=== PATIENT | male | born 1980 | race African-American/Black ===

== ENCOUNTER 2023-05-28 10:00 | Inpatient (IN) | payer OTHER ==
[2023-05-28 10:58] VITALS: BMI 21.3
[2023-05-28] MEDS ORDERED: BISMUTH SUBSALICYLATE 524 MG/30 ML PO PRN (14:41)
[2023-05-28] MEDS ORDERED: guaiFENesin 600 MG TABLET.ER (FP) PO PRN (14:41)
[2023-05-28] MEDS ORDERED: MAG HYDROX/AL HYDROX/SIMETH 30 ML UNIT-DOSE CUP PO PRN (14:41)
[2023-05-28] MEDS ORDERED: POLYETHYLENE GLYCOL (HEALTHYLAX) 3350 17 GM PACKET PO PRN (14:41)
[2023-05-28] MEDS ORDERED: METHOCARBAMOL 500 MG TABLET PO PRN (14:41)
[2023-05-28] MEDS ORDERED: MAGNESIUM HYDROX 2400MG/30ML ORAL SUSPENSION 30 ML CUP PO PRN (14:41)
[2023-05-28] MEDS ORDERED: IBUPROFEN 600 MG TABLET (FP) PO PRN (14:41)
[2023-05-28] MEDS ORDERED: chlordiazePOXIDE HCL 25 MG CAPSULE PO PRN (14:41)
[2023-05-28] MEDS ORDERED: DICYCLOMINE HCL 10 MG CAPSULE PO PRN (14:41)
[2023-05-28] MEDS ORDERED: NALOXONE HCL 0.4 MG/ML VIAL IM PRN (14:41)
[2023-05-28] MEDS ORDERED: BENZOCAINE/MENTHOL (CHLORASEPTIC ) LOZENGE MM PRN (14:41)
[2023-05-28] MEDS ORDERED: NALOXONE HCL (KLOXXADO) 8 MG SPRAY NS PRN (14:41)
[2023-05-28] MEDS ORDERED: hydrOXYzine PAMOATE 25 MG CAPSULE (FP) PO PRN (14:41)
[2023-05-28] MEDS ORDERED: IBUPROFEN 400 MG TABLET (FP) PO PRN (14:41)
[2023-05-28] MEDS ORDERED: LOPERAMIDE HCL 2 MG CAPSULE PO PRN (14:41)
[2023-05-28] MEDS ORDERED: ACETAMINOPHEN 325 MG TABLET (FP) PO PRN (14:41)
[2023-05-28] MEDS ORDERED: ONDANSETRON *ODT* 4 MG TABLET SL PRN (14:41)
[2023-05-28] MEDS ORDERED: BENZONATATE 200 MG CAPSULE PO PRN (14:41)
[2023-05-28] MEDS ORDERED: chlordiazePOXIDE HCL 25 MG CAPSULE ONE (16:50)
[2023-05-28] MEDS: chlordiazePOXIDE HCL 25 MG CAPSULE PO SCH ×2 (16:58→22:45)
[2023-05-28] MEDS: MELATONIN 5 MG TABLETS PO SCH (22:46)
[2023-05-28] MEDS: THIAMINE HCL 100 MG TABLET (FP) PO SCH (22:46)
[2023-05-29] MEDS: chlordiazePOXIDE HCL 25 MG CAPSULE PO SCH ×4 (06:02→22:10)
[2023-05-29] MEDS ORDERED: ALBUTEROL SO4 HFA INHALER IH PRN (08:59)
[2023-05-29] MEDS: NICOTINE POLACRILEX 2 MG GUM BUC PRN (10:33)
[2023-05-29] MEDS: PRENATAL VITAMINS W/ FOLIC ACID TABLET (FP) PO SCH (10:34)
[2023-05-29 12:10] LABS: HEMATOCRIT 36.8 % (35.4-49); HEMOGLOBIN 12.5 GM/dL (11.7-16.9); MCH 32.8 pg (25.7-33.7); MCHC 33.9 g/dl (32.0-35.9); MEAN CELL VOLUME 96.5 fl (80-96); MEAN PLT VOLUME 10.4 fl (7.5-11.1); PLATELET COUNT 192 10^3/uL (134-434); RBC 3.81 M/mm3 (4.00-5.60); RDW 12.9 % (11.9-15.9); WHITE BLOOD COUNT 5.5 K/mm3 (4.0-10.0)
[2023-05-29 12:15] LABS: POTASSIUM 4.1 mmol/L (3.5-5.1)
[2023-05-29 12:25] LABS: BLOOD UREA NITROGEN 15.1 mg/dL (7-18); CALCIUM 8.6 mg/dL (8.5-10.1)
[2023-05-29 12:26] LABS: ALBUMIN 3.6 g/dl (3.4-5.0)
[2023-05-29 12:30] LABS: BILIRUBIN,TOTAL 0.7 mg/dL (0.2-1); TOT PROT 6.9 g/dl (6.4-8.2)
[2023-05-29] MEDS: THIAMINE HCL 100 MG TABLET (FP) PO SCH (22:10)
[2023-05-29] MEDS: MELATONIN 5 MG TABLETS PO SCH (22:11)
[2023-05-30] MEDS: chlordiazePOXIDE HCL 25 MG CAPSULE PO SCH ×5 (05:32→22:07)
[2023-05-30] MEDS: PRENATAL VITAMINS W/ FOLIC ACID TABLET (FP) PO SCH ×2 (10:29→10:30)
[2023-05-30] MEDS: THIAMINE HCL 100 MG TABLET (FP) PO SCH (22:07)
[2023-05-30] MEDS: MELATONIN 5 MG TABLETS PO SCH (22:08)
[2023-05-31] MEDS ORDERED: chlordiazePOXIDE HCL 10 MG CAPSULE PO PRN
[2023-05-31] MEDS: chlordiazePOXIDE HCL 10 MG CAPSULE PO SCH ×4 (05:40→22:09)
[2023-05-31] MEDS: PRENATAL VITAMINS W/ FOLIC ACID TABLET (FP) PO SCH (10:35)
[2023-05-31] MEDS: NICOTINE POLACRILEX 2 MG GUM BUC PRN (10:38)
[2023-05-31] MEDS: THIAMINE HCL 100 MG TABLET (FP) PO SCH (22:09)
[2023-05-31] MEDS: MELATONIN 5 MG TABLETS PO SCH (22:10)
[2023-06-01] MEDS: chlordiazePOXIDE HCL 10 MG CAPSULE PO SCH ×2 (05:43→17:45)
[2023-06-01] MEDS: PRENATAL VITAMINS W/ FOLIC ACID TABLET (FP) PO SCH (11:15)
[2023-06-01] MEDS: MELATONIN 5 MG TABLETS PO SCH (22:24)
[2023-06-01] MEDS: THIAMINE HCL 100 MG TABLET (FP) PO SCH (22:24)
[2023-06-02] MEDS ORDERED: chlordiazePOXIDE HCL 10 MG CAPSULE PO ONE (05:00)
[2023-06-02 06:42] VITALS: RESP 17
[2023-06-02 09:49] VITALS: BP 101/65; PULSE 82; TEMP 96.9
[2023-06-02] MEDS: PRENATAL VITAMINS W/ FOLIC ACID TABLET (FP) PO SCH (10:19)
== END 2023-06-02 10:47 | disposition home or self-care (01) | DRG 775 ==
LOC: YASAS 10:00 → Y6N 16:19
PROVIDERS: ADMIT Allergy & Immunology; ATTEND Allergy & Immunology
PROC: HZ2ZZZZ Detoxification Services for Substance Abuse Treatment (ICD-10-PCS; principal; 2023-05-28)
DX: F10.230 Alcohol dependence with withdrawal, uncomplicated (principal); F17.210 Nicotine dependence, cigarettes, uncomplicated; J45.30 Mild persistent asthma, uncomplicated
CPT/HCPCS: 36415; 80053; 85027; 86780; 87635; 87811

== ENCOUNTER 2023-08-15 14:23 | Inpatient (IN) | payer OTHER ==
[2023-08-15 16:01] VITALS: BMI 23.3
[2023-08-15] MEDS ORDERED: BENZONATATE 200 MG CAPSULE PO PRN (16:29)
[2023-08-15] MEDS ORDERED: NALOXONE HCL 0.4 MG/ML VIAL IM PRN (16:29)
[2023-08-15] MEDS ORDERED: MAGNESIUM HYDROX 2400MG/30ML ORAL SUSPENSION 30 ML CUP PO PRN (16:29)
[2023-08-15] MEDS ORDERED: ACETAMINOPHEN 325 MG TABLET (FP) PO PRN (16:29)
[2023-08-15] MEDS ORDERED: hydrOXYzine PAMOATE 25 MG CAPSULE (FP) PO PRN (16:29)
[2023-08-15] MEDS ORDERED: ONDANSETRON *ODT* 4 MG TABLET SL PRN (16:29)
[2023-08-15] MEDS ORDERED: BENZOCAINE/MENTHOL (CHLORASEPTIC ) LOZENGE MM PRN (16:29)
[2023-08-15] MEDS ORDERED: IBUPROFEN 400 MG TABLET (FP) PO PRN (16:29)
[2023-08-15] MEDS ORDERED: guaiFENesin 600 MG TABLET.ER (FP) PO PRN (16:29)
[2023-08-15] MEDS ORDERED: chlordiazePOXIDE HCL 25 MG CAPSULE PO PRN (16:29)
[2023-08-15] MEDS ORDERED: LOPERAMIDE HCL 2 MG CAPSULE PO PRN (16:29)
[2023-08-15] MEDS ORDERED: BISMUTH SUBSALICYLATE 524 MG/30 ML PO PRN (16:29)
[2023-08-15] MEDS ORDERED: DICYCLOMINE HCL 10 MG CAPSULE PO PRN (16:29)
[2023-08-15] MEDS ORDERED: NALOXONE HCL (KLOXXADO) 8 MG SPRAY NS PRN (16:29)
[2023-08-15] MEDS ORDERED: POLYETHYLENE GLYCOL (HEALTHYLAX) 3350 17 GM PACKET PO PRN (16:29)
[2023-08-15] MEDS ORDERED: IBUPROFEN 600 MG TABLET (FP) PO PRN (16:29)
[2023-08-15] MEDS ORDERED: MAG HYDROX/AL HYDROX/SIMETH 30 ML UNIT-DOSE CUP PO PRN (16:29)
[2023-08-15] MEDS ORDERED: NICOTINE POLACRILEX 2 MG GUM BUC PRN (16:29)
[2023-08-15] MEDS ORDERED: METHOCARBAMOL 500 MG TABLET PO PRN (16:29)
[2023-08-15] MEDS ORDERED: ALBUTEROL SO4 HFA INHALER IH PRN (16:31)
[2023-08-15] MEDS: PRENATAL VITAMINS W/ FOLIC ACID TABLET (FP) PO SCH (17:33)
[2023-08-15] MEDS: chlordiazePOXIDE HCL 25 MG CAPSULE PO SCH ×2 (17:34→22:43)
[2023-08-15] MEDS: THIAMINE HCL 100 MG TABLET (FP) PO SCH (22:42)
[2023-08-15] MEDS: MELATONIN 5 MG TABLETS PO SCH (22:42)
[2023-08-16] MEDS: chlordiazePOXIDE HCL 25 MG CAPSULE PO SCH ×4 (05:36→22:15)
[2023-08-16] MEDS: PRENATAL VITAMINS W/ FOLIC ACID TABLET (FP) PO SCH (10:11)
[2023-08-16] MEDS: NICOTINE 21 MG/24 HOURS TOPICAL PATCH TD SCH (10:11)
[2023-08-16 11:32] LABS: HEMATOCRIT 38.2 % (35.4-49); MCH 31.5 pg (25.7-33.7); MEAN CELL VOLUME 92.7 fl (80-96); MEAN PLT VOLUME 9.4 fl (7.5-11.1); PLATELET COUNT 239 10^3/uL (134-434); RBC 4.12 M/mm3 (4.00-5.60); RDW 13.1 % (11.9-15.9); WHITE BLOOD COUNT 4.3 K/mm3 (4.0-10.0)
[2023-08-16 12:46] LABS: CHLORIDE 106 mmol/L (98-107); POTASSIUM 4.2 mmol/L (3.5-5.1); SODIUM 141 mmol/L (136-145)
[2023-08-16 12:55] LABS: ANION GAP 6 mmol/L (4-13); BLOOD UREA NITROGEN 7.7 mg/dL (7-18); CALCIUM 8.7 mg/dL (8.5-10.1); CO2 29 mmol/L (21-32); GLUCOSE,RANDOM 96 mg/dL (74-106)
[2023-08-16 12:56] LABS: ALBUMIN 3.6 g/dl (3.4-5.0)
[2023-08-16 12:59] LABS: CREATININE 1.1 mg/dL (0.55-1.3); SGOT/AST 91 U/L (15-37); SGPT/ALT 69 U/L (13-61)
[2023-08-16 13:00] LABS: TOT PROT 6.8 g/dl (6.4-8.2)
[2023-08-16 13:01] LABS: ALK PHOS 68 U/L (45-117)
[2023-08-16] MEDS: MELATONIN 5 MG TABLETS PO SCH (22:15)
[2023-08-16] MEDS: THIAMINE HCL 100 MG TABLET (FP) PO SCH (22:15)
[2023-08-17] MEDS: chlordiazePOXIDE HCL 25 MG CAPSULE PO SCH ×4 (05:45→22:14)
[2023-08-17] MEDS: PRENATAL VITAMINS W/ FOLIC ACID TABLET (FP) PO SCH (10:18)
[2023-08-17] MEDS: NICOTINE 21 MG/24 HOURS TOPICAL PATCH TD SCH (10:20)
[2023-08-17] MEDS: MELATONIN 5 MG TABLETS PO SCH (22:13)
[2023-08-17] MEDS: THIAMINE HCL 100 MG TABLET (FP) PO SCH (22:14)
[2023-08-18] MEDS ORDERED: chlordiazePOXIDE HCL 10 MG CAPSULE PO PRN
[2023-08-18] MEDS: chlordiazePOXIDE HCL 10 MG CAPSULE PO SCH ×2 (05:32→10:03)
[2023-08-18] MEDS: PRENATAL VITAMINS W/ FOLIC ACID TABLET (FP) PO SCH (10:03)
[2023-08-18] MEDS: NICOTINE 21 MG/24 HOURS TOPICAL PATCH TD SCH (10:04)
[2023-08-18 12:59] VITALS: BP 106/66; PULSE 80; RESP 18; TEMP 97.9
[2023-08-19] MEDS ORDERED: chlordiazePOXIDE HCL 10 MG CAPSULE PO SCH (05:00)
[2023-08-20] MEDS ORDERED: chlordiazePOXIDE HCL 10 MG CAPSULE PO ONE (05:00)
== END 2023-08-18 14:50 | disposition home or self-care (01) | DRG 775 ==
LOC: YASAS 14:23 → Y3N 16:44
PROVIDERS: ADMIT Allergy & Immunology; ATTEND Surgery
PROC: HZ2ZZZZ Detoxification Services for Substance Abuse Treatment (ICD-10-PCS; principal; 2023-08-15)
DX: F10.230 Alcohol dependence with withdrawal, uncomplicated (principal); F17.210 Nicotine dependence, cigarettes, uncomplicated; J45.30 Mild persistent asthma, uncomplicated; Z86.19 Personal history of other infectious and parasitic diseases; Z59.01 Sheltered homelessness
CPT/HCPCS: 36415; 80053; 80307; 85027; 86780; 87635

== ENCOUNTER 2024-03-16 08:52 | Inpatient (IN) | payer OTHER ==
[2024-03-16 09:24] VITALS: BMI 20.5
[2024-03-16] MEDS ORDERED: DICYCLOMINE HCL 10 MG CAPSULE PO PRN (11:05)
[2024-03-16] MEDS ORDERED: NICOTINE POLACRILEX 4 MG GUM BUC PRN (11:05)
[2024-03-16] MEDS ORDERED: guaiFENesin 600 MG TABLET.ER (FP) PO PRN (11:05)
[2024-03-16] MEDS ORDERED: POLYETHYLENE GLYCOL (HEALTHYLAX) 3350 17 GM PACKET PO PRN (11:05)
[2024-03-16] MEDS ORDERED: ONDANSETRON *ODT* 4 MG TABLET SL PRN (11:05)
[2024-03-16] MEDS ORDERED: MAGNESIUM HYDROX 2400MG/30ML ORAL SUSPENSION 30 ML CUP PO PRN (11:05)
[2024-03-16] MEDS ORDERED: NALOXONE HCL 0.4 MG/ML VIAL IM PRN (11:05)
[2024-03-16] MEDS ORDERED: NALOXONE (NARCAN) HCL 4 MG/0.1 ML SPRAY NS PRN (11:05)
[2024-03-16] MEDS ORDERED: LOPERAMIDE HCL 2 MG CAPSULE PO PRN (11:05)
[2024-03-16] MEDS ORDERED: IBUPROFEN 400 MG TABLET (FP) PO PRN (11:05)
[2024-03-16] MEDS ORDERED: BENZOCAINE/MENTHOL (CHLORASEPTIC ) LOZENGE MM PRN (11:05)
[2024-03-16] MEDS ORDERED: BENZONATATE 200 MG CAPSULE PO PRN (11:05)
[2024-03-16] MEDS ORDERED: BISMUTH SUBSALICYLATE 524 MG/30 ML PO PRN (11:05)
[2024-03-16] MEDS ORDERED: AMMONIUM LACTATE 12% LOTION 225 GM BOTTLE TP PRN (11:05)
[2024-03-16] MEDS ORDERED: IBUPROFEN 600 MG TABLET (FP) PO PRN (11:05)
[2024-03-16] MEDS ORDERED: chlordiazePOXIDE HCL 25 MG CAPSULE PO PRN (11:05)
[2024-03-16] MEDS ORDERED: ACETAMINOPHEN 325 MG TABLET (FP) PO PRN (11:05)
[2024-03-16] MEDS ORDERED: ALBUTEROL SO4 HFA INHALER IH PRN (11:08)
[2024-03-16] MEDS: chlordiazePOXIDE HCL 25 MG CAPSULE PO SCH (17:13)
[2024-03-16] MEDS: THIAMINE 100 MG TABLET PO SCH (22:09)
[2024-03-16] MEDS: MELATONIN 5 MG TABLETS PO SCH (22:09)
[2024-03-17 11:57] LABS: CHLORIDE 103 mmol/L (98-107); POTASSIUM 3.2 mmol/L (3.5-5.1); SODIUM 139 mmol/L (136-145)
[2024-03-17 11:58] LABS: CALCIUM 8.6 mg/dL (8.5-10.1)
[2024-03-17 11:59] LABS: ALBUMIN 3.5 g/dl (3.4-5.0); ANION GAP 6 mmol/L (4-13); BLOOD UREA NITROGEN 7.8 mg/dL (7-18); CO2 30 mmol/L (21-32); GLUCOSE,RANDOM 88 mg/dL (74-106)
[2024-03-17] MEDS: PRENATAL VITAMINS W/ FOLIC ACID TABLET (FP) PO SCH (12:01)
[2024-03-17 12:02] LABS: CREATININE 0.7 mg/dL (0.55-1.3); SGOT/AST 77 U/L (15-37); SGPT/ALT 41 U/L (13-61)
[2024-03-17 12:04] LABS: BILIRUBIN,TOTAL 0.7 mg/dL (0.2-1); TOT PROT 6.5 g/dl (6.4-8.2)
[2024-03-17 12:05] LABS: ALK PHOS 81 U/L (45-117)
[2024-03-17 12:11] LABS: HEMATOCRIT 32.9 % (35.4-49); HEMOGLOBIN 11.1 GM/dL (11.7-16.9); MCH 34.3 pg (25.7-33.7); MCHC 33.8 g/dl (32.0-35.9); MEAN CELL VOLUME 101.4 fl (80-96); PLATELET COUNT 128 10^3/uL (134-434); RBC 3.24 M/mm3 (4.00-5.60); RDW 13.6 % (11.9-15.9); WHITE BLOOD COUNT 3.4 K/mm3 (4.0-10.0)
[2024-03-17] MEDS: MAG HYDROX/AL HYDROX/SIMETH 30 ML UNIT-DOSE CUP PO PRN (22:10)
[2024-03-18] MEDS: chlordiazePOXIDE HCL 25 MG CAPSULE PO SCH (05:39)
[2024-03-18] MEDS: POTASSIUM CHLORIDE ORAL LIQUID 20 MEQ/15 ML PO ONE (15:30)
[2024-03-18] MEDS: LACTULOSE 20 GM/30 ML UDC (FOR ORAL USE ONLY) PO SCH (17:13)
[2024-03-18] MEDS: POTASSIUM CHLORIDE ORAL LIQUID 20 MEQ/15 ML PO SCH (22:18)
[2024-03-19] MEDS ORDERED: chlordiazePOXIDE HCL 10 MG CAPSULE PO PRN
[2024-03-19] MEDS: chlordiazePOXIDE HCL 10 MG CAPSULE PO SCH (06:09)
[2024-03-19] MEDS: METHOCARBAMOL 500 MG TABLET PO PRN (10:25)
[2024-03-20] MEDS: chlordiazePOXIDE HCL 10 MG CAPSULE PO SCH (05:45)
[2024-03-21] MEDS: chlordiazePOXIDE HCL 10 MG CAPSULE PO ONE (05:51)
[2024-03-21 08:45] VITALS: BP 126/84; PULSE 79; RESP 18; TEMP 96.9
== END 2024-03-21 09:50 | disposition other institution (70) | DRG 775 ==
LOC: YASAS 08:52 → Y6N 13:16
PROVIDERS: ADMIT Allergy & Immunology; ATTEND Surgery
PROC: HZ2ZZZZ Detoxification Services for Substance Abuse Treatment (ICD-10-PCS; principal; 2024-03-16)
DX: F10.230 Alcohol dependence with withdrawal, uncomplicated (principal); F17.210 Nicotine dependence, cigarettes, uncomplicated; E87.6 Hypokalemia; J45.30 Mild persistent asthma, uncomplicated; K21.9 Gastro-esophageal reflux disease without esophagitis; M54.9 Dorsalgia, unspecified; R79.89 Other specified abnormal findings of blood chemistry
CPT/HCPCS: 36415; 80053; 80305; 80307; 82140; 84132; 85027; 86780; 93005; 93010

== ENCOUNTER 2024-05-13 10:06 | Inpatient (IN) | payer OTHER ==
[2024-05-13 10:38] VITALS: BMI 19.8
[2024-05-13] MEDS ORDERED: ALBUTEROL SO4 HFA INHALER IH PRN (11:32)
[2024-05-13] MEDS ORDERED: IBUPROFEN 600 MG TABLET (FP) PO PRN (11:39)
[2024-05-13] MEDS ORDERED: ACETAMINOPHEN 325 MG TABLET (FP) PO PRN (11:39)
[2024-05-13] MEDS ORDERED: POLYETHYLENE GLYCOL (HEALTHYLAX) 3350 17 GM PACKET PO PRN (11:39)
[2024-05-13] MEDS ORDERED: ONDANSETRON *ODT* 4 MG TABLET SL PRN (11:39)
[2024-05-13] MEDS ORDERED: LOPERAMIDE HCL 2 MG CAPSULE PO PRN (11:39)
[2024-05-13] MEDS ORDERED: guaiFENesin 600 MG TABLET.ER (FP) PO PRN (11:39)
[2024-05-13] MEDS ORDERED: MAG HYDROX/AL HYDROX/SIMETH 30 ML UNIT-DOSE CUP PO PRN (11:39)
[2024-05-13] MEDS ORDERED: MAGNESIUM HYDROX 2400MG/30ML ORAL SUSPENSION 30 ML CUP PO PRN (11:39)
[2024-05-13] MEDS ORDERED: BENZOCAINE/MENTHOL (CHLORASEPTIC ) LOZENGE MM PRN (11:39)
[2024-05-13] MEDS ORDERED: NICOTINE POLACRILEX 2 MG LOZENGE BC PRN (11:39)
[2024-05-13] MEDS ORDERED: DICYCLOMINE HCL 10 MG CAPSULE PO PRN (11:39)
[2024-05-13] MEDS ORDERED: IBUPROFEN 400 MG TABLET (FP) PO PRN (11:39)
[2024-05-13] MEDS ORDERED: BISMUTH SUBSALICYLATE 524 MG/30 ML PO PRN (11:39)
[2024-05-13] MEDS ORDERED: BENZONATATE 200 MG CAPSULE PO PRN (11:39)
[2024-05-13] MEDS: chlordiazePOXIDE HCL 25 MG CAPSULE PO PRN (17:21)
[2024-05-13] MEDS: METHOCARBAMOL 500 MG TABLET PO PRN (17:21)
[2024-05-13] MEDS: THIAMINE 100 MG TABLET PO SCH (22:18)
[2024-05-13] MEDS: MELATONIN 5 MG TABLETS PO SCH (22:18)
[2024-05-13] MEDS: chlordiazePOXIDE HCL 25 MG CAPSULE PO SCH (22:19)
[2024-05-14 09:28] LABS: POTASSIUM 4.3 mmol/L (3.5-5.1)
[2024-05-14 09:31] LABS: ALBUMIN 3.4 g/dl (3.4-5.0); BLOOD UREA NITROGEN 9.7 mg/dL (7-18)
[2024-05-14 09:35] LABS: BILIRUBIN,TOTAL 0.5 mg/dL (0.2-1); HEMATOCRIT 31.7 % (35.4-49); HEMOGLOBIN 10.8 GM/dL (11.7-16.9); MCHC 34.1 g/dl (32.0-35.9); MEAN CELL VOLUME 96.7 fl (80-96); MEAN PLT VOLUME 8.8 fl (7.5-11.1); PLATELET COUNT 231 10^3/uL (134-434); RBC 3.27 M/mm3 (4.00-5.60); RDW 14.6 % (11.9-15.9); WHITE BLOOD COUNT 3.8 K/mm3 (4.0-10.0)
[2024-05-14 09:36] LABS: TOT PROT 6.6 g/dl (6.4-8.2)
[2024-05-14] MEDS ORDERED: LORazepam 1 MG TABLET PO PRN (09:56)
[2024-05-14] MEDS: LORazepam 2 MG TABLET PO SCH (10:14)
[2024-05-14] MEDS: PRENATAL VITAMINS W/ FOLIC ACID TABLET (FP) PO SCH (10:15)
[2024-05-15] MEDS ORDERED: chlordiazePOXIDE HCL 25 MG CAPSULE PO SCH (05:00)
[2024-05-15] MEDS: NALTREXONE HCL 50 MG TABLET PO SCH (10:10)
[2024-05-16] MEDS ORDERED: LORazepam 0.5 MG TABLET PO PRN
[2024-05-16] MEDS ORDERED: chlordiazePOXIDE HCL 10 MG CAPSULE PO PRN
[2024-05-16] MEDS ORDERED: chlordiazePOXIDE HCL 10 MG CAPSULE PO SCH (05:00)
[2024-05-16] MEDS: LORazepam 1 MG TABLET PO SCH (05:24)
[2024-05-16] MEDS: amLODIPine BESYLATE 10 MG TABLET (FP) PO SCH (11:38)
[2024-05-17] MEDS ORDERED: chlordiazePOXIDE HCL 10 MG CAPSULE PO SCH (05:00)
[2024-05-17] MEDS: LORazepam 0.5 MG TABLET PO SCH (05:22)
[2024-05-17] MEDS: NICOTINE POLACRILEX 2 MG GUM BUC PRN (17:23)
[2024-05-18] MEDS ORDERED: chlordiazePOXIDE HCL 10 MG CAPSULE PO ONE (05:00)
[2024-05-19 12:48] VITALS: BP 116/70; PULSE 85; RESP 16; TEMP 98
== END 2024-05-19 13:25 | disposition other institution (70) | DRG 775 ==
LOC: YASAS 10:06 → Y6N 11:50
PROVIDERS: ADMIT Allergy & Immunology; ATTEND Surgery
PROC: HZ2ZZZZ Detoxification Services for Substance Abuse Treatment (ICD-10-PCS; principal; 2024-05-13)
DX: F10.230 Alcohol dependence with withdrawal, uncomplicated (principal); F10.220 Alcohol dependence with intoxication, uncomplicated; F17.210 Nicotine dependence, cigarettes, uncomplicated; I10 Essential (primary) hypertension; J45.20 Mild intermittent asthma, uncomplicated; Z91.013 Allergy to seafood
CPT/HCPCS: 36415; 80053; 80305; 80307; 85027; 86780; 87811

== ENCOUNTER 2024-05-19 14:04 | Inpatient (IN) | payer OTHER ==
[2024-05-19] MEDS ORDERED: IBUPROFEN 600 MG TABLET (FP) PO PRN (15:55)
[2024-05-19] MEDS ORDERED: BENZONATATE 200 MG CAPSULE PO PRN (15:55)
[2024-05-19] MEDS ORDERED: MAGNESIUM HYDROX 2400MG/30ML ORAL SUSPENSION 30 ML CUP PO PRN (15:55)
[2024-05-19] MEDS ORDERED: ACETAMINOPHEN 325 MG TABLET (FP) PO PRN (15:55)
[2024-05-19] MEDS ORDERED: MAG HYDROX/AL HYDROX/SIMETH 30 ML UNIT-DOSE CUP PO PRN (15:55)
[2024-05-19] MEDS ORDERED: NALOXONE (NARCAN) HCL 4 MG/0.1 ML SPRAY NS PRN (15:55)
[2024-05-19] MEDS ORDERED: LOPERAMIDE HCL 2 MG CAPSULE PO PRN (15:55)
[2024-05-19] MEDS ORDERED: BENZOCAINE/MENTHOL (CHLORASEPTIC ) LOZENGE MM PRN (15:55)
[2024-05-19] MEDS ORDERED: guaiFENesin 600 MG TABLET.ER (FP) PO PRN (15:55)
[2024-05-19] MEDS ORDERED: POLYETHYLENE GLYCOL (HEALTHYLAX) 3350 17 GM PACKET PO PRN (15:55)
[2024-05-19] MEDS ORDERED: IBUPROFEN 400 MG TABLET (FP) PO PRN (15:55)
[2024-05-19] MEDS ORDERED: NALOXONE HCL 0.4 MG/ML VIAL IM PRN (15:55)
[2024-05-19] MEDS ORDERED: ALBUTEROL SO4 HFA INHALER IH PRN (15:56)
[2024-05-19] MEDS: THIAMINE 100 MG TABLET PO SCH (22:45)
[2024-05-19] MEDS: MELATONIN 5 MG TABLETS PO SCH (22:45)
[2024-05-20] MEDS: hydrOXYzine PAMOATE 25 MG CAPSULE (FP) PO PRN (02:35)
[2024-05-20] MEDS: NALTREXONE HCL 50 MG TABLET PO SCH (10:16)
[2024-05-20] MEDS: amLODIPine BESYLATE 10 MG TABLET (FP) PO SCH (10:16)
[2024-05-20] MEDS: PRENATAL VITAMINS W/ FOLIC ACID TABLET (FP) PO SCH (10:16)
[2024-05-20 11:12] LABS: BASO % 0.8 % (0-2.0); EOS % 3.9 % (0-4.5); HEMATOCRIT 33.5 % (35.4-49); HEMOGLOBIN 11.3 GM/dL (11.7-16.9); LYMPH % 32.4 % (8-40); MCH 33.1 pg (25.7-33.7); MCHC 33.6 g/dl (32.0-35.9); MEAN CELL VOLUME 98.5 fl (80-96); MEAN PLT VOLUME 10.6 fl (7.5-11.1); MONO % 13.6 % (3.8-10.2); NEUT % 49.3 % (42.8-82.8); PLATELET COUNT 198 10^3/uL (134-434); RDW 15.7 % (11.9-15.9); WHITE BLOOD COUNT 5.6 K/mm3 (4.0-10.0)
[2024-05-20 11:21] LABS: POTASSIUM 4.2 mmol/L (3.5-5.1)
[2024-05-20 11:24] LABS: BLOOD UREA NITROGEN 10.2 mg/dL (7-18); CALCIUM 9.4 mg/dL (8.5-10.1)
[2024-05-20 11:30] LABS: CREATININE 0.7 mg/dL (0.55-1.3)
[2024-05-20] MEDS: SUVOREXANT 10 MG TABLET PO PRN (21:29)
[2024-05-22] MEDS ORDERED: NICOTINE 21 MG/24 HOURS TOPICAL PATCH TD PRN (09:55)
[2024-05-22] MEDS ORDERED: NICOTINE 21 MG/24 HOURS TOPICAL PATCH TD SCH (10:00)
[2024-05-22] MEDS: NICOTINE POLACRILEX 4 MG GUM BUC PRN (21:34)
[2024-05-22] MEDS: SUVOREXANT 10 MG TABLET PO PRN (21:34)
[2024-05-23] MEDS: ACAMPROSATE CALCIUM 333 MG TABLET.DR PO SCH (13:57)
[2024-05-24] MEDS: FERROUS SO4 325 MG TABLET (FP) PO SCH (09:56)
[2024-05-24 14:50] VITALS: BMI 20.4
[2024-05-24] MEDS: SUVOREXANT 10 MG TABLET PO PRN (21:30)
[2024-05-25] MEDS: traZODone HCL 50 MG TABLET (FP) PO SCH (21:12)
[2024-05-27] MEDS: SUVOREXANT 10 MG TABLET PO PRN (21:42)
[2024-05-29] MEDS ORDERED: P-EPHED 60MG/TRIPROLIDI 2.5MG TABLET PO PRN (11:27)
[2024-05-29] MEDS ORDERED: guaiFENesin 600 MG TABLET.ER (FP) PO PRN (11:27)
[2024-05-29] MEDS ORDERED: BENZONATATE 200 MG CAPSULE PO PRN (11:27)
[2024-05-29] MEDS ORDERED: SIMETHICONE 80 MG TAB.CHEW (FP) PO PRN (11:49)
[2024-05-29] MEDS ORDERED: OXYMETAZOLINE 0.05% NASAL SOLUTION 15 ML BOTTLE NS PRN (11:51)
[2024-05-29] MEDS: GABAPENTIN 100 MG CAPSULE PO SCH (14:24)
[2024-05-29] MEDS: SUVOREXANT 15 MG TABLET PO PRN (21:20)
[2024-05-29] MEDS ORDERED: SUVOREXANT 10 MG TABLET PO PRN (22:00)
[2024-06-01] MEDS: SUVOREXANT 15 MG TABLET PO PRN (21:05)
[2024-06-02 07:07] VITALS: TEMP 97.7
[2024-06-03 09:43] VITALS: BP 108/77; PULSE 100; RESP 18
== END 2024-06-03 09:58 | disposition home or self-care (01) | DRG 772 ==
LOC: YASAS 14:04 → Y3NR 14:05 → Y3W 05-20 11:33
PROVIDERS: ADMIT Allergy & Immunology; ATTEND Psychiatry & Neurology Pain Medicine
PROC: HZ42ZZZ Group Counseling for Substance Abuse Treatment, Cognitive-Behavioral (ICD-10-PCS; principal; 2024-05-19)
DX: F10.20 Alcohol dependence, uncomplicated (principal); F17.210 Nicotine dependence, cigarettes, uncomplicated; F10.282 Alcohol dependence with alcohol-induced sleep disorder; F10.280 Alcohol dependence with alcohol-induced anxiety disorder; F41.9 Anxiety disorder, unspecified; D50.9 Iron deficiency anemia, unspecified; I10 Essential (primary) hypertension; J45.20 Mild intermittent asthma, uncomplicated; K21.9 Gastro-esophageal reflux disease without esophagitis; L85.3 Xerosis cutis; M54.50 Low back pain, unspecified; G89.29 Other chronic pain; Z87.19 Personal history of other diseases of the digestive system; Z86.69 Personal history of other diseases of the nervous system and sense organs
CPT/HCPCS: 0241U-QW; 36415; 80048; 82607; 82746; 85025; 86803

== ENCOUNTER 2024-09-14 08:23 | Inpatient (IN) | payer OTHER ==
[2024-09-14 09:08] VITALS: BMI 19.8
[2024-09-14] MEDS ORDERED: MAG HYDROX/AL HYDROX/SIMETH 30 ML UNIT-DOSE CUP PO PRN (09:38)
[2024-09-14] MEDS ORDERED: ONDANSETRON *ODT* 4 MG TABLET SL PRN (09:38)
[2024-09-14] MEDS ORDERED: ACETAMINOPHEN 325 MG TABLET (FP) PO PRN (09:38)
[2024-09-14] MEDS ORDERED: POLYETHYLENE GLYCOL (HEALTHYLAX) 3350 17 GM PACKET PO PRN (09:38)
[2024-09-14] MEDS ORDERED: BISMUTH SUBSALICYLATE 524 MG/30 ML PO PRN (09:38)
[2024-09-14] MEDS ORDERED: BENZONATATE 200 MG CAPSULE PO PRN (09:38)
[2024-09-14] MEDS ORDERED: BENZOCAINE/MENTHOL (CHLORASEPTIC ) LOZENGE MM PRN (09:38)
[2024-09-14] MEDS ORDERED: guaiFENesin 600 MG TABLET.ER (FP) PO PRN (09:38)
[2024-09-14] MEDS ORDERED: DICYCLOMINE HCL 10 MG CAPSULE PO PRN (09:38)
[2024-09-14] MEDS ORDERED: IBUPROFEN 600 MG TABLET (FP) PO PRN (09:38)
[2024-09-14] MEDS ORDERED: MAGNESIUM HYDROX 2400MG/30ML ORAL SUSPENSION 30 ML CUP PO PRN (09:38)
[2024-09-14] MEDS ORDERED: NICOTINE POLACRILEX 4 MG LOZENGE BC PRN (09:38)
[2024-09-14] MEDS ORDERED: IBUPROFEN 400 MG TABLET (FP) PO PRN (09:38)
[2024-09-14] MEDS ORDERED: NALOXONE (NARCAN) HCL 4 MG/0.1 ML SPRAY NS PRN (09:38)
[2024-09-14] MEDS ORDERED: AMMONIUM LACTATE 12% LOTION 225 GM BOTTLE TP PRN (09:38)
[2024-09-14] MEDS ORDERED: LOPERAMIDE HCL 2 MG CAPSULE PO PRN (09:38)
[2024-09-14] MEDS ORDERED: PRENATAL VITAMINS W/ FOLIC ACID TABLET (FP) PO ONE (09:54)
[2024-09-14] MEDS: PRENATAL VITAMINS W/ FOLIC ACID TABLET (FP) PO SCH (10:04)
[2024-09-14] MEDS: levETIRAcetam 500 MG TABLET (FP) PO ONE (17:35)
[2024-09-14] MEDS: chlordiazePOXIDE HCL 25 MG CAPSULE PO SCH (18:16)
[2024-09-14] MEDS: MELATONIN 5 MG TABLETS PO SCH (22:25)
[2024-09-14] MEDS: THIAMINE 100 MG TABLET PO SCH (22:25)
[2024-09-15] MEDS: METHOCARBAMOL 500 MG TABLET PO PRN (00:04)
[2024-09-15 09:04] LABS: POTASSIUM 3.6 mmol/L (3.5-5.1)
[2024-09-15 09:06] LABS: ALBUMIN 3.6 g/dl (3.4-5.0); BLOOD UREA NITROGEN 4.2 mg/dL (7-18); CALCIUM 8.2 mg/dL (8.5-10.1)
[2024-09-15 09:07] LABS: HEMOGLOBIN 10.3 GM/dL (11.7-16.9); MCH 34.5 pg (25.7-33.7); MCHC 34.3 g/dl (32.0-35.9); MEAN CELL VOLUME 100.6 fl (80-96); MEAN PLT VOLUME 9.7 fl (7.5-11.1); PLATELET COUNT 177 10^3/uL (134-434); RBC 2.99 M/mm3 (4.00-5.60); RDW 13.5 % (11.9-15.9); WHITE BLOOD COUNT 4.8 K/mm3 (4.0-10.0)
[2024-09-15 09:09] LABS: CREATININE 0.9 mg/dL (0.55-1.3)
[2024-09-15 09:11] LABS: BILIRUBIN,TOTAL 0.8 mg/dL (0.2-1); TOT PROT 6.6 g/dl (6.4-8.2)
[2024-09-15] MEDS: levETIRAcetam 500 MG TABLET (FP) PO SCH (10:18)
[2024-09-15] MEDS ORDERED: ALBUTEROL SO4 HFA INHALER IH PRN (11:32)
[2024-09-15] MEDS: amLODIPine BESYLATE 10 MG TABLET (FP) PO SCH (11:52)
[2024-09-15] MEDS: chlordiazePOXIDE HCL 25 MG CAPSULE PO PRN (13:02)
[2024-09-16] MEDS: chlordiazePOXIDE HCL 25 MG CAPSULE PO SCH (05:30)
[2024-09-16 21:14] VITALS: RESP 16
[2024-09-16] MEDS: LACTULOSE 20 GM/30 ML UDC (FOR ORAL USE ONLY) PO SCH (22:14)
[2024-09-17] MEDS ORDERED: chlordiazePOXIDE HCL 10 MG CAPSULE PO PRN
[2024-09-17] MEDS: NICOTINE POLACRILEX 4 MG GUM BUC PRN (03:11)
[2024-09-17] MEDS: chlordiazePOXIDE HCL 10 MG CAPSULE PO SCH (05:31)
[2024-09-17 09:16] VITALS: BP 145/89; PULSE 91; TEMP 98.2
[2024-09-17] MEDS: NALOXONE (NYS OPIOID OVERDOSE PROGRAM) 4 MG/0.1 ML SPRAY NS SCH (10:46)
[2024-09-17 16:01] LABS: EOS % 3.3 % (0-4.5); HEMATOCRIT 32.9 % (35.4-49); HEMOGLOBIN 11.3 GM/dL (11.7-16.9); LYMPH % 28.5 % (8-40); MCH 35.7 pg (25.7-33.7); MCHC 34.3 g/dl (32.0-35.9); MEAN CELL VOLUME 104.2 fl (80-96); MEAN PLT VOLUME 10.6 fl (7.5-11.1); MONO % 8.1 % (3.8-10.2); NEUT % 59.1 % (42.8-82.8); PLATELET COUNT 130 10^3/uL (134-434); RBC 3.16 M/mm3 (4.00-5.60); RDW 14.1 % (11.9-15.9); WHITE BLOOD COUNT 7.4 K/mm3 (4.0-10.0)
[2024-09-17 16:18] LABS: POTASSIUM 4.2 mmol/L (3.5-5.1)
[2024-09-17 16:27] LABS: BLOOD UREA NITROGEN 11.1 mg/dL (7-18)
[2024-09-17 16:31] LABS: BILIRUBIN,TOTAL 0.5 mg/dL (0.2-1)
[2024-09-17 16:56] LABS: ALBUMIN 4.3 g/dl (3.4-5.0); CALCIUM 10.6 mg/dL (8.5-10.1)
[2024-09-18] MEDS ORDERED: chlordiazePOXIDE HCL 10 MG CAPSULE PO SCH (05:00)
[2024-09-19] MEDS ORDERED: chlordiazePOXIDE HCL 10 MG CAPSULE PO ONE (05:00)
== END 2024-09-17 10:06 | disposition left against medical advice (07) | DRG 770 ==
LOC: YASAS 08:23 → Y3N 10:02 → UNDOADMIN 10:02 → Y3N 23:30
PROVIDERS: ADMIT Neuromusculoskeletal Medicine & OMM; ATTEND Surgery
PROC: HZ2ZZZZ Detoxification Services for Substance Abuse Treatment (ICD-10-PCS; principal; 2024-09-14)
DX: F10.230 Alcohol dependence with withdrawal, uncomplicated (principal); F17.210 Nicotine dependence, cigarettes, uncomplicated; F41.9 Anxiety disorder, unspecified; I10 Essential (primary) hypertension; J45.909 Unspecified asthma, uncomplicated; K21.9 Gastro-esophageal reflux disease without esophagitis; M54.50 Low back pain, unspecified; G89.29 Other chronic pain; S09.8XXA Other specified injuries of head, initial encounter; R56.9 Unspecified convulsions; W19.XXXA Unspecified fall, initial encounter; Y92.239 Unspecified place in hospital as the place of occurrence of the external cause
CPT/HCPCS: 36415; 80053; 80305; 80307; 82140; 82962; 85025; 85027; 86780; 93005; 93010

== ENCOUNTER 2024-09-14 17:52 | Emergency (ER) | payer OTHER ==
[2024-09-14 18:44] VITALS: RESP 18; BMI 19.6
[2024-09-14 19:19] VITALS: TEMP 99
[2024-09-14] MEDS ORDERED: ACETAMINOPHEN INJECTION 100 ML ONE (19:46)
[2024-09-14] MEDS: ACETAMINOPHEN 1000 MG/100 ML BAG IVPB ONE (20:05)
[2024-09-14] MEDS ORDERED: chlordiazePOXIDE HCL 25 MG CAPSULE ONE (20:09)
[2024-09-14] MEDS ORDERED: DIPHTH,PERTUSS(ACELL),TET 0.5 ML DISP.SYRIN IM ONE (20:10)
[2024-09-14 20:11] LABS: BASO % 1.2 % (0-2.0); EOS % 0.3 % (0-4.5); HEMATOCRIT 34.3 % (35.4-49); HEMOGLOBIN 11.6 GM/dL (11.7-16.9); LYMPH % 11.3 % (8-40); MCH 33.9 pg (25.7-33.7); MCHC 33.7 g/dl (32.0-35.9); MEAN CELL VOLUME 100.6 fl (80-96); MEAN PLT VOLUME 7.6 fl (7.5-11.1); NEUT % 76.2 % (42.8-82.8); PLATELET COUNT 205 10^3/uL (134-434); RBC 3.41 M/mm3 (4.00-5.60); RDW 13.8 % (11.9-15.9); WHITE BLOOD COUNT 5.3 K/mm3 (4.0-10.0)
[2024-09-14 20:18] LABS: INR 0.92 (0.83-1.09); PROTHROMBIN TIME (PATIENT) 10.4 SEC (9.7-13.0)
[2024-09-14] MEDS: chlordiazePOXIDE HCL 25 MG CAPSULE PO ONE (20:21)
[2024-09-14] MEDS: DIPHTH,PERTUSS(ACELL),TET 0.5 ML DISP.SYRIN IM ONE (20:21)
[2024-09-14 20:49] LABS: POTASSIUM 3.7 mmol/L (3.5-5.1)
[2024-09-14 20:51] LABS: CALCIUM 9.1 mg/dL (8.5-10.1)
[2024-09-14 20:52] LABS: ALBUMIN 4.5 g/dl (3.4-5.0); BLOOD UREA NITROGEN 6.2 mg/dL (7-18); MAGNESIUM 1.3 mg/dL (1.8-2.4)
[2024-09-14 20:56] LABS: BILIRUBIN,TOTAL 0.7 mg/dL (0.2-1)
[2024-09-14 20:57] LABS: TOT PROT 8.2 g/dl (6.4-8.2)
[2024-09-14] MEDS ORDERED: MAGNESIUM 1GM/D5W - 1 GM/100 ML IVPB IVPB ONE (21:21)
[2024-09-14] MEDS: MAGNESIUM 1GM/D5W - 1 GM/100 ML IVPB IVPB ONE (21:34)
[2024-09-14 21:54] LABS: EPI CELLS 5 /uL (0-25.1); HYALINE CASTS 1 /uL (0-3.1); PH,URINE >= 9.0 (5.0-8.0); URINE APPEARANCE CLEAR; URINE BACTERIA 6 /uL (0-1359); URINE BILIRUBIN NEGATIVE (NEGATIVE); URINE COLOR YELLOW; URINE GLUCOSE (UA) NEGATIVE (NEGATIVE); URINE KETONE NEGATIVE (NEGATIVE); URINE LEUK ESTERASE NEGATIVE (NEGATIVE); URINE NITRITE NEGATIVE (NEGATIVE); URINE PROTEIN 1+ (NEGATIVE); URINE RBC 1 /uL (0-23.9); URINE UROBILINOGEN 0.2 mg/dL (0.2-1.0); URINE WBC 2 /uL (0-25.8)
[2024-09-14 22:47] VITALS: BP 144/81; PULSE 78
== END 2024-09-15 | disposition home or self-care (01) ==
LOC: JER 17:52
PROC: 3E033GC Introduction of Other Therapeutic Substance into Peripheral Vein, Percutaneous Approach (ICD-10-PCS; principal; 2024-09-14)
PROC: 3E033NZ Introduction of Analgesics, Hypnotics, Sedatives into Peripheral Vein, Percutaneous Approach (ICD-10-PCS; 2024-09-14)
PROC: 3E0234Z Introduction of Serum, Toxoid and Vaccine into Muscle, Percutaneous Approach (ICD-10-PCS; 2024-09-14)
DX: S01.01XA Laceration without foreign body of scalp, initial encounter (principal); F10.939 Alcohol use, unspecified with withdrawal, unspecified; R56.9 Unspecified convulsions; W19.XXXA Unspecified fall, initial encounter; Y90.9 Presence of alcohol in blood, level not specified; Z23 Encounter for immunization
CPT/HCPCS: 36415; 70450-TC; 71046-TC-FY; 72125-TC; 80053; 81003; 83735; 84484; 85025; 85610; 86850; 86870; 86880; 86900; 86901; 86902; 90471; 90715; 96365; 96375; 99285-25; J0131